=== PATIENT | male | born 1965 | race Caucasian/White ===

== ENCOUNTER 2023-03-21 12:21 | Outpatient (CLI) | payer OTHER, SELFPAY ==
--- NOTE | 2023-03-21 12:26 | CT_ITS ---
WS: [id number] CT CHEST ANGIOGRAPHY WITH REFORMATS HISTORY: CHEST PAIN/ELEVATED D DIMER TECHNIQUE: Contiguous axial images are obtained through the chest during arterial injection of intrav enous contrast. Images are reconstructed to evaluate the pulmonary arteries. MIP imaging also reviewe d. All CT scans at [facility] use at least one of these dose optimization techniques: automat ed exposure control; mA and/or kV adjustment per patient size (includes targeted exams where dose is matched to clinical indication); or iterative reconstruction. CONTRAST: Omnipaque 350; 100 mL IV. DLP: 400.15 mGy.cm COMPARISON: None available. And opacification of the pulmonary arteries. There are no filling defects or pulmonary emboli. Pulmon lynn artery size is normal. Very mild atherosclerosis aorta. No aneurysm. No RIGHT heart strain. Candice l heart. No pericardial or pleural effusion. Bovine arch. No adenopathy. There is very mild interstitial thickening predominantly in the lower lung adams. No areas of consol idation. There is a very focal groundglass asymmetry in the RIGHT upper lobe. Suspect mild acute bron chiolitis. Moderate size hiatal hernia. No adrenal mass. Visualized upper abdominal structures are negative. IMPRESSION: 1. No pulmonary embolism. 2. Suspect very mild changes of respiratory bronchiolitis. No pneumonia. 3. No RIGHT heart strain. 4. Moderate hiatal hernia.
[2023-03-21] MEDS: iohexol 350 mg/mL 500 mL Btl (per mL) IV (12:39)
== END 2023-03-21 12:22 | disposition home or self-care (01) ==
LOC: RAD 12:21
PROVIDERS: PCP Family Medicine; Visit Provider Family Medicine
DX: R07.9 Chest pain, unspecified (principal); R79.1 Abnormal coagulation profile; K44.9 Diaphragmatic hernia without obstruction or gangrene
CPT/HCPCS: 71275; Q9967

== ENCOUNTER 2023-05-02 11:43 | Outpatient (CLI) | payer OTHER, SELFPAY ==
--- NOTE | 2023-05-02 | ECG_ITS ---
[facility] Test Date: 2023-05-02 Pat Name: Adarsh White Department: Room: Gender: Male Patient Ambassador: : 1965 Requested By: Domingo Luo Order Number: [id number] Lama MD: Rajesh Rodrigues M.D. Interpretive Statements NAME OF STUDY: TREADMILL STRESS TEST INDICATION: [Chest Pain] EXERCISE DATA: The patient was exercised by Abhishek protocol. Baseline heart rate was 76 beats per minute. Baseline blood pressure was 129/90 millimeters of mercury. Maximal predicted heart rate was 164 beats per minute. Maximum heart rate achieved was 156, which was 95%% of the maximum predicted heart rate. Maximum blood pressure was 207/93 millimeters of mercury. Total exercise time was 10 minutes 30 seconds. Maximum METs achieved was 13.5. The reason for ending the test was completion of protocol. The patient complained of shortness of breath during the stress test, which then resolved at the end of the test. ELECTROCARDIOGRAM: BASELINE: Showed sinus rhythm, normal axis, no significant ST-T changes at the baseline noted. [] EXERCISE: At the peak exercise level, [] No significant ST-T changes suggestive of ischemia noted. [] RECOVERY: During the recovery period, heart rate dropped appropriately. No significant ST-T changes in the recovery suggestive of ischemia noted. [] CONCLUSION: 1. Exercise capacity is excellent. 2. Heart rate response was appropriate. 3. Blood pressure response was appropriate. 4. Symptoms not suggestive of ischemia. 5. Stress test does not show ischemia. Electronically Signed On 05-09-2023 12:16:58 MUSIC ENGINEER by Rajesh Rodrigues M.D. [id number]
[2023-05-02 11:54] VITALS: BMI 27.1
[2023-05-02 12:43] VITALS: BP 136/84; PULSE 99
== END 2023-05-02 11:44 | disposition home or self-care (01) ==
PROVIDERS: PCP Family Medicine; Visit Provider Family Medicine
DX: R07.9 Chest pain, unspecified (principal)
CPT/HCPCS: 93017